=== PATIENT | female | born 1975 | race Caucasian/White ===

== ENCOUNTER 2018-03-19 19:17 | Emergency (ER) | payer BC, OTHER ==
[2018-03-19 20:52] VITALS: BP 118/62
--- NOTE | 2018-03-19 21:15 | ED ---
"Head Injury - HPI Summary HPI Summary: 43 yr old female with right index finger swelling, right 2nd metacarpal discomfort. Onset memorial day, and does not remember the time of onset but realized Memorial day evening her hand hurt her. She does not recall trauma, hitting it, cutting it. She was working outside. Denies wrist, forearm or upper arm pain. No fever or chills. Does not feel ill - History Of Current Complaint Chief Complaint: UCUpperExtremity Stated Complaint: RIGHT HAND PAIN & WEAKNESS Time Seen by Provider: 03/19/18 20:52 Hx Last Menstrual Period: 02/26/18 Pain Intensity: 1 - Allergies/Home Medications Allergies/Adverse Reactions: Allergies Allergy/AdvReac Type Severity Reaction Status Date / Time No Known Allergies Allergy Verified 03/19/18 20:48 Home Medications: Home Medications Cholecalciferol TAB* [Vitamin D TAB*] 1,000 unit PO DAILY 03/19/18 [History Confirmed 03/19/18] Ibuprofen TAB* [Advil TAB*] 600 mg PO Q6H PRN 03/19/18 [History Confirmed ] PMH/Surg Hx/FS Hx/Imm Hx Endocrine/Hematology History: Denies: Hx Diabetes, Hx Thyroid Disease Cardiovascular History: Denies: Hx Hypertension, Hx Pacemaker/ICD Respiratory History: Denies: Hx Asthma, Hx Chronic Obstructive Pulmonary Disease (COPD) GI History: Denies: Hx Ulcer History: Denies: Hx Renal Disease Sensory History: Denies: Hx Hearing Aid Psychiatric History: Denies: Hx Panic Disorder Infectious Disease History: No Infectious Disease History: Denies: Hx Clostridium Difficile, Hx Hepatitis, Hx Human Immunodeficiency Virus (HIV), Hx of Known/Suspected MRSA, Hx Shingles, Hx Tuberculosis, Hx Known/ Suspected VRE, Hx Known/Suspected VRSA, History Other Infectious Disease, Traveled Outside the [place] in Last 30 Days - Social History Alcohol Use: Weekly Substance Use Type: Reports: None Smoking Status (MU): Never Smoked Tobacco Review of Systems Constitutional: Negative Positive: Other - right hand pain All Other Systems Reviewed And Are Negative: Yes Physical Exam Triage Information Reviewed: Yes Vital Signs On Initial Exam: Initial Vitals Temp Pulse Resp BP Pulse Ox 99.1 F 76 15 118/62 100 03/19/18 20:44 03/19/18 20:44 03/19/18 20:44 03/19/18 20:44 03/19/18 20:44 Vital Signs Reviewed: Yes Appearance: Positive: Well-Appearing, No Pain Distress Skin: Positive: Warm, Skin Color Reflects Adequate Perfusion Head/Face: Positive: Normal Head/Face Inspection Eyes: Positive: EOMI Respiratory/Lung Sounds: Positive: Clear to Auscultation, Breath Sounds Present Cardiovascular: Positive: RRR, Pulses are Symmetrical in both Upper and Lower Extremities. Negative: Murmur Abdomen Description: Negative: Distended Musculoskeletal: Positive: Strength/ROM Intact, Other - slight edema to the right index finger, and also to the 2nd metacarpal area right hand. minimal tenderness. No redness, no increased warmth. No swelling or tenderness or lymph nodes on right arm forearm, axilla. Normal flexor and extensor tendon function without pain. No joint effusions hand. Normal neuro vasc right hand on exam. Procedures - Splinting Right 2nd Digit Location: right hand Pre-Made Type: metal - foam metal Splint: volar - magda taped 2/3 digits Pre-Proc Neuro Vasc Exam: normal Post-Proc Neuro Vasc Exam: normal Diagnostics - Vital Signs Vital Signs Temp Pulse Resp BP Pulse Ox 03/19/18 20:44 99.1 F 76 15 118/62 100 - Laboratory Lab Statement: Any lab studies that have been ordered have been reviewed, and results considered in the medical decision making process. - Radiology hand right Xray Interpretation: No Acute Changes Radiology Interpretation Completed By: Radiologist Head Injury Course/Dx Course Of Treatment: 43 yr old female with pain 2nd MP area mostly without redness, fever, warmth, and negative xray for acute fracture. I have splinted the finger and have asked the patient to call ortho for follow up. She is familiar with [facility] in [place], and plans to call for an appointment in follow up tomorrow. I have explained she needs to follow up to be sure no occult fracture or other findings. - Diagnoses Provider Diagnoses: Metacarpophalangeal joint pain of right hand Discharge - Sign-Out/Discharge Documenting (check all that apply): Discharge/Admit/Transfer - Discharge Plan Condition: Good Disposition: HOME Patient Education Materials: Arthralgia (ED), Hand Sprain (ED) Referrals: Tamara Lamb MD [Primary Care Provider] - Additional Instructions: [facility] | [facility] 3.5 23 reviews Medical clinic in [place], [place] DirectionsWebsite Address: [address] [place] [address], [place] [address] Closed now Call [facility] for an appointment for a hand specialist. - Billing Disposition and Condition Condition: GOOD Disposition: Home"
--- NOTE | 2018-03-19 21:46 | RAD ---
INDICATION: Soft tissue swelling and pain at RIGHT second finger. Possible injury while gardening. COMPARISON: No relevant prior exams available on the [facility] PACS for comparison. TECHNIQUE: AP, lateral, and oblique views RIGHT hand. REPORT AND IMPRESSION: Negative for fracture or malalignment. 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 Suggestion of associated small intra-articular loose bodies at the ulnar margins of the second and third distal interphalangeal joints. Mild fusiform swelling of the second finger most prominent at the level of the proximal interphalangeal joint. Negative for subcutaneous emphysema or conspicuous foreign body.
== END 2018-03-19 22:06 | disposition home or self-care (01) ==
LOC: UCCORT 19:17
DX: M79.644 Pain in right finger(s) (principal)
CPT/HCPCS: 99211; G0463

== ENCOUNTER 2019-05-04 19:20 | Emergency (ER) | payer BC ==
[2019-05-04 19:34] VITALS: BP 130/69
--- NOTE | 2019-05-04 19:47 | UC ---
Lower Extremity/Ankle HPI - HPI Summary HPI Summary: 44-year-old female who was hiking approximately 3 weeks ago when she rolled her left ankle, she's recently been gardening and she accidentally dropped some rocks on the dorsum of her left foot. She states that she has been ambulating but at the end of the day she has ankle swelling and pain as well as foot pain which has not resolved however the ankle and foot pain is worse in the morning. - History of Current Complaint Chief Complaint: UCLowerExtremity Stated Complaint: LEFT ANKLE PAIN Time Seen by Provider: 05/04/19 19:40 Hx Obtained From: Patient Hx Last Menstrual Period: 04/25/19 ?: No Onset/Duration: Sudden Onset Severity Initially: Mild Severity Currently: Mild Pain Intensity: 4 Aggravating Factor(s): Ambulation, Other - Worse at the end of the day. Alleviating Factor(s): Rest Able to Bear Weight: Yes - Allergies/Home Medications Allergies/Adverse Reactions: Allergies Allergy/AdvReac Type Severity Reaction Status Date / Time No Known Allergies Allergy Verified 05/04/19 19:34 Home Medications: Home Medications Naproxen Sodium [Naproxen 220 mg] 440 mg PO DAILY 05/04/19 [History Confirmed ] PMH/Surg Hx/FS Hx/Imm Hx Previously Healthy: Yes - Surgical History Surgical History: None - Family History Known Family History: Positive: Non-Contributory - Social History Alcohol Use: Weekly Substance Use Type: None Smoking Status (MU): Never Smoked Tobacco - Immunization History Most Recent Influenza Vaccination: 2014 Review of Systems All Other Systems Reviewed And Are Negative: Yes Motor: Positive: Negative Neurovascular: Positive: Negative Musculoskeletal: Positive: Negative, Other: - Pain and swelling of the lateral ankle more at the end of the day, she also has pain in her left foot dorsal area with hyperextension. Neurological: Positive: Negative Is Patient Immunocompromised?: No Physical Exam Triage Information Reviewed: Yes Appearance: Well-Appearing, No Pain Distress, Well-Nourished Vital Signs: Initial Vital Signs Temp 97.3 F 05/04/19 19:31 Pulse 69 05/04/19 19:31 Resp 10 05/04/19 19:31 BP 130/69 05/04/19 19:31 Pulse Ox 100 05/04/19 19:31 Vital Signs Reviewed: Yes Musculoskeletal: Positive: Strength Intact, ROM Intact, No Edema, Other: - Mild swelling to the lateral left ankle with minimal tenderness on palpation, no deformity is noted. Achilles is intact. Nontender at the base of the first and fifth metatarsals. Mid dorsum of the left foot is mildly tender on palpation but no bruising, erythema, deformity or swelling. Neurological: Positive: Alert, Muscle Tone Normal Skin Exam: Normal Lower Extremity Course/Dx - Course Course Of Treatment: Left ankle x-ray: X-ray as interpreted by myself and Dr. Morris there is a possibility of a fracture the distal tibia. Foot x-ray: Negative An ankle gel brace will be applied and patient is to use crutches and be nonweightbearing until she follows up with the orthopedist tomorrow morning. - Differential Dx/Diagnosis Provider Diagnosis: Ankle fracture Discharge - Sign-Out/Discharge Documenting (check all that apply): Patient Departure All imaging exams completed and their final reports reviewed: No - Discharge Plan Condition: Fair Disposition: HOME Patient Education Materials: Ankle Fracture (DC) Forms: *Work Release Referrals: Jose Carlos Johnson MD [Medical Doctor] - Prem Giles MD [Medical Doctor] - Francesca Crawford MD [Primary Care Provider] - Additional Instructions: Nonweightbearing until seen by the orthopedist. Elevate as much as possible. Tylenol every 4 hours and Motrin every 8 hours for pain. - Billing Disposition and Condition Condition: FAIR Disposition: Home
--- NOTE | 2019-05-05 10:38 | UC ---
- Progress Note Progress Note: Wet read -? fx Radiologist- no fx please notify Pt Course/Dx - Diagnoses Provider Diagnoses: Ankle fracture Discharge - Sign-Out/Discharge Documenting (check all that apply): Post-Discharge Follow Up All imaging exams completed and their final reports reviewed: Yes - Discharge Plan Condition: Fair Disposition: HOME Patient Education Materials: Ankle Fracture (DC) Forms: *Work Release Referrals: Jose Carlos Johnson MD [Medical Doctor] - Prem Giles MD [Medical Doctor] - Francesca Crawford MD [Primary Care Provider] - Additional Instructions: Nonweightbearing until seen by the orthopedist. Elevate as much as possible. Tylenol every 4 hours and Motrin every 8 hours for pain. - Billing Disposition and Condition Condition: FAIR Disposition: Home
== END 2019-05-04 20:55 | disposition home or self-care (01) ==
LOC: UCCORT 19:20
DX: S82.891A Other fracture of right lower leg, initial encounter for closed fracture (principal); W20.8XXA Other cause of strike by thrown, projected or falling object, initial encounter; X50.0XXA Overexertion from strenuous movement or load, initial encounter; Y93.H2 Activity, gardening and landscaping; Y92.9 Unspecified place or not applicable
CPT/HCPCS: 99213; G0463